=== PATIENT | male | born 1965 | race Caucasian/White ===

== ENCOUNTER → 2021-01-30 07:01 | Outpatient (CLI) | payer OTHER, SELFPAY | PROVIDERS: Visit Provider Internal Medicine Gastroenterology | DX: Z01.812 Encounter for preprocedural laboratory examination (principal); Z11.52 Encounter for screening for COVID-19; Z12.11 Encounter for screening for malignant neoplasm of colon | CPT/HCPCS: U0003 ==

== ENCOUNTER 2021-02-02 06:58 | Day surgery (SDC) | payer OTHER, SELFPAY ==
[2021-01-28 09:58] VITALS: BMI 29.4
[2021-02-02 07:10] VITALS: BP 154/102; PULSE 96; RESP 18; TEMP 36.1; O2SAT 99
--- NOTE | 2021-02-02 08:03 | P.PN_ITS ---
[facility] Anesthesia Checklist - Structural Data Admitted From: Home Planned Operative Procedure/s: colonoscopy Consent for Planned Operative Procedure(s) Verified: Yes - Airway Assessment C-Spine Mobility Assessed: Yes TMJ Mobility Assessed: Yes Dentition: Good Dentition - Neurological Assessment Level of Consciousness: Awake, Alert, Appropriate - Anesthesia Plan Anesthesia Risk discussed: Yes Anesthesia Plan: Verified ASA Class: II Anesthesia Type: MAC [facility] History I have reviewed the patient's past medical history: Yes Medical History: Denies:: Cancer, Diabetes Mellitus Type 1, Diabetes Mellitus Type 2, Internal Pacemaker, MRSA, Seizures *Have you ever received a pneumonia vaccine?: No *Have you received a flu vaccine this season?: Yes Anesthesia experience/problems:: none Other Surgeries: No: Pacemaker Amputation: No Fractures: No - *Social History Last grade of school completed: Advanced degree Smoking Status: Never smoker Alcohol Intake: never Substance Use Type: denies use *Occupational Status:: employed Housing: house Household Members: family *Travel in the last 8 weeks: Inside the [facility] Family Hx:: No significant family history, Coronary Artery Disease, Diabetes, Heart Attack, Hyperlipidemia, Hypertension, Stroke
--- NOTE | 2021-02-02 08:10 | HMH.PROC ---
[facility] Procedure Note Procedure Note:: Colonoscopy Procedure Report: Colonoscopy with cold snare polypectomy Endoscopist: Star Osuna II, MD Referring physician: Demarco Robles MD Date of Procedure: February 02, 2021 Equipment: Olympus 190 variable stiffness pediatric colonoscope Sedation: MAC sedation Indication: Mr. Boston is a 55-year-old gentleman who is here for initial screening colonoscopy. He reports no abdominal pain, weight loss, change in his bowel habits or rectal bleeding. He reports no family history of colon cancer. Procedure: Prior to the procedure, a history and physical exam was performed, and patient's medications and allergies were reviewed. The risks, benefits and alternatives of the sedation and procedure were discussed with the patient. All questions were answered and informed consent was obtained. The patient was brought to the procedure room. Patient identification and proposed procedure were verified by the physician and the nurse. The patient was placed in a left lateral decubitus position and the scope was passed under direct vision. Throughout the procedure, the patient's blood pressure, pulse, and oxygen saturations were monitored continuously. The colonoscopy was accomplished without difficulty. The patient tolerated the procedure well. Findings: On digital rectal examination there was normal rectal tone. There were no external hemorrhoids. The prostate was 2+, smooth, soft, symmetric without nodules. The colonoscope was introduced through the anal canal to the rectum and advanced to the cecum. The ileocecal valve and appendiceal orifice were identified. The scope was advanced a short distance into the ileum which appeared grossly normal. The scope was then withdrawn into the colon. There were 3 colon polyps (cecum x2 (3 and 4 mm) and sigmoid x1 (4 mm)) which were all removed via cold snare polypectomy. The remainder of the cecum, ascending and transverse colon and mucosa were grossly normal. There were scattered diverticuli throughout the descending and sigmoid colon (LEFT colon). The rectum itself was normal. Upon retroflexion within the rectum there were grade 1-2 internal hemorrhoids. The preparation was excellent throughout with [place] Preparation Score of 9. The cecal time was 12 minutes. Impression: 1. Diminutive colonic polyps x3 2. Left-sided diverticulosis 3. Grade 1-2 internal hemorrhoids Plan: I will follow up the polyp pathology and recommend repeat colonoscopy again in 5-7 years based upon the polyp histology. I would encourage bulking fiber supplementation on a long-term daily maintenance basis.
[2021-02-02 08:35] VITALS: BP 133/78; PULSE 83; RESP 18; TEMP 36.8; O2SAT 94
[2021-02-02 08:40] VITALS: BP 150/67; PULSE 82; RESP 18; O2SAT 95
[2021-02-02 08:50] VITALS: BP 141/70; PULSE 77; RESP 18; O2SAT 97
[2021-02-02 09:07] VITALS: BP 138/74; PULSE 69; RESP 18; O2SAT 97
[2021-02-02 09:49] VITALS: O2SAT 97
== END 2021-02-02 09:22 | disposition home or self-care (01) ==
LOC: OUTP 07:00
PROVIDERS: PCP Family Medicine; Visit Provider Internal Medicine Gastroenterology
PROC: 0DJD8ZZ Inspection of Lower Intestinal Tract, Via Natural or Artificial Opening Endoscopic (ICD-10-PCS; CPT 45378; principal; 2021-02-02 08:00)
DX: D12.0 Benign neoplasm of cecum (principal); D12.5 Benign neoplasm of sigmoid colon
CPT/HCPCS: 45385

== ENCOUNTER 2022-04-24 16:16 | Emergency (ER) | payer OTHER, SELFPAY ==
[2022-04-24 16:40] VITALS: BP 140/80; PULSE 101; RESP 18; TEMP 37.1; O2SAT 97; BMI 30.5
--- NOTE | 2022-04-24 17:08 | EXP.UTC ---
Discharge Plan Disposition Patient Disposition: Home, Self-Care Condition: Good Prescriptions Prescriptions: No Action simvastatin 20 MG tablet 20 mg PO DAILY irbesartan 300 MG tablet 300 mg PO DAILY Referrals Follow up/Referrals: Anay Schultz MD [Primary Care Provider] - See instructions Activity Restrictions/Add. Instructions Additional Instructions/Restrictions: follow up with pcp call health department on tuesday if any concerns or symptoms return or be seen in ed Clinical Impressions Clinical Impression: Needle stick injury of finger Instructions Patient Instructions: DI for Puncture Wound Discharge ED Provider: Garland ([facility] [facility] [place] General Stated complaint: AO@04/24@1500sticked contaminated needle Time Seen by Provider: 04/24/22 17:08 Resp Symptoms (Recalled from RN notes): No Skin Symptoms (Recalled from RN notes): No GI/ Symptoms (Recalled from RN notes): No MS Symptoms (Recalled from RN notes): No Card Symptoms (Recalled from RN notes): No Other (Recalled from RN notes): No History of Present Illness Provider Complaint: 56 yr old male presents for a needle stick. pt states he was mowing the yard and spotted a syringe with a needle on it in his yard. states he used a bag to pick it up and stuck himself in the index finger. pt states area did bleed and he cleaned area well. 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) Smoking Status: Never smoker alcohol intake: never substance use type: denies use current occupational status: employed Travel in the last 8 weeks: Inside the [place] household members: family housing: house caffeine: Yes ROS Obtained: Yes All systems reviewed & no additional complaints except as documented Constitutional Constitutional: Reports system reviewed and no additional complaints, except as documented Eyes Eyes: Reports system reviewed and no additional complaints, except as documented ENT Ears, Nose, Mouth, and Throat: Reports system reviewed and no additional complaints, except as documented Cardiovascular Cardiovascular: Reports system reviewed and no additional complaints, except as documented Respiratory Respiratory: Reports system reviewed and no additional complaints, except as documented Gastrointestinal Gastrointestingal: Reports system reviewed and no additional complaints, except as documented Musculoskeletal Musculoskeletal: Reports system reviewed and no additional complaints, except as documented Integumentary/Breasts Skin/Breast: Reports system reviewed and no additional complaints, except as documented and Reports as per HPI Neurologic Neurologic: Reports system reviewed and no additional complaints, except as documented Endocrine Endocrine: Reports system reviewed and no additional complaints, except as documented Hematologic/Lymphatic Henatologic/Lymphatic: Reports system reviewed and no additional complaints, except as documented Allergic/Immunologic Allergic/Immunologic: Reports system reviewed and no additional complaints, except as documented Physical Exam General General appearance: alert and in no apparent distress Head Head exam: atraumatic Eye Eye exam: Present normal appearance ENT ENT exam: Present normal exam Neck Neck exam: Present normal inspection Chest Chest inspection: Present normal inspection Respiratory Respiratory exam: Present normal lung sounds bilaterally Cardiovascular Cardiovascular ex
[2022-04-24 17:38] VITALS: BP 140/80; PULSE 101; RESP 18; TEMP 37.1; O2SAT 97
[2022-04-27 13:12] LABS: HIV Screen 4th Generation wRfx Non Reactive (Non Reactive)
[2022-05-20 12:23] LABS: Hepatitis C Antibody <0.1
[2022-05-20 12:41] LABS: Hep A Ab, IgM NEGATIVE; Hepatitis B Core Antibody IgM NEGATIVE; Hepatitis B Surface Antigen NEGATIVE
== END 2022-04-24 17:40 | disposition home or self-care (01) ==
PROVIDERS: Emergency Provider Nurse Practitioner Family; PCP Family Medicine
DX: S61.239A Puncture wound without foreign body of unspecified finger without damage to nail, initial encounter (principal); W46.0XXA Contact with hypodermic needle, initial encounter; Y93.H9 Activity, other involving exterior property and land maintenance, building and construction; Y92.096 Garden or yard of other non-institutional residence as the place of occurrence of the external cause; Z23 Encounter for immunization
CPT/HCPCS: 80074; 86703; 90471; 90715; 99212; G0432; G0463

== ENCOUNTER 2023-11-09 14:07 | Outpatient (CLI) | payer OTHER, SELFPAY ==
[2023-11-09 15:09] LABS: Blood Urea Nitrogen 18 mg/dl (9-20); Estimated Glomerular Filt Rate 87 ml/min (>60); GFR (African American) 106 ML/MIN (>60)
[2023-11-11 08:37] LABS: PSA, Free 0.45 ng/mL; Prostate Specific Ag 2.8 ng/mL (0.0-4.0)
== END 2023-11-09 23:59 | disposition home or self-care (01) ==
LOC: LAB 14:08
PROVIDERS: PCP Family Medicine; Visit Provider Urology
DX: N28.1 Cyst of kidney, acquired (principal); Z80.42 Family history of malignant neoplasm of prostate
CPT/HCPCS: 36415; 82565; 84153; 84154; 84520

== ENCOUNTER 2023-11-17 15:12 | Outpatient (CLI) | payer OTHER, SELFPAY ==
--- NOTE | 2023-11-17 15:12 | US_ITS ---
FINAL REPORT TECHNIQUE: Ultrasound images of the kidneys and bladder were obtained. CLINICAL HISTORY: . COMPARISON: None FINDINGS: The right kidney measures 11.8 cm in length. It is normal in echogenicity. There is a dilated calyx in the lower pole the right kidney. There is a mildly prominent right renal pelvis. The left kidney measures 12.7 cm in length. It is normal in echogenicity. There is moderate hydronephrosis. IMPRESSION: Dilated calyx in the lower pole of right kidney and moderate left-sided hydronephrosis. Recommend infused abdomen pelvis CT to evaluate for source. Reviewed, Interpreted and Dictated by Didier Betancourt MD Transcribed by DEONDRE Collado Authenticated and . [facility]
== END 2023-11-17 23:59 | disposition home or self-care (01) ==
LOC: RAD 15:12
PROVIDERS: PCP Family Medicine; Visit Provider Urology
DX: N28.1 Cyst of kidney, acquired (principal)
CPT/HCPCS: 76770

== ENCOUNTER 2023-12-07 12:47 | Outpatient (CLI) | payer OTHER, SELFPAY ==
--- NOTE | 2023-12-07 12:48 | CT_ITS ---
FINAL REPORT TECHNIQUE: Axial CT images of the abdomen and pelvis were obtained before and after the administration of IV contrast. This study was performed with techniques to keep radiation doses as low as reasonably achievable (ALARA). Individualized dose reduction techniques using automated exposure control or adjustment of mA and/or kV according to the patient''s size were employed. CLINICAL HISTORY: renal cyst prior u/s follow up for renal cyst COMPARISON: Ultrasound examination of the retroperitoneum dated 11/17/2023 FINDINGS: Abdomen: The lung bases are clear. The heart is normal in size. The liver has an unremarkable appearance, without evidence of mass or biliary duct dilatation. . The spleen is unremarkable. No adrenal masses present. The pancreas has an unremarkable appearance. There is bilateral mild to moderate hydronephrosis versus parapelvic cysts. If this does represent bilateral hydronephrosis is likely secondary to UPJ stenoses as the ureters appear normal in size. There is atrophy of the lower pole of the left kidney. There is a high attenuation mass in the lower pole of the left kidney that does not show contrast-enhancement, and measures 15 mm in size. This is consistent with a hyperdense cyst, Bosniak category 2. The aorta is normal in caliber. There is no free fluid or adenopathy. No mass or abnormal fluid collection is seen. Precontrast images demonstrate no evidence of nephrolithiasis. Pelvis: The appendix is normal. There is a small umbilical hernia containing fat. There is also a small left inguinal hernia containing fat. The urinary bladder is unremarkable. No inflammatory process is seen. There is no evidence of mass or adenopathy. There is no evidence of bowel obstruction. IMPRESSION: Bilateral hydronephrosis versus parapelvic cysts. This could be further evaluated with follow-up CT with delayed postcontrast imaging. Hyperdense cyst left kidney as described above. Atrophy lower pole of the left kidney. Reviewed, Interpreted and Dictated by Geovani Martinez III, MD Transcribed by Suzanne Sebastian Authenticated and [facility]
[2023-12-07] MEDS: SODIUM CHLORIDE 0.9% 10ML SYR (RAD ONLY) 10 ML IV (13:29)
[2023-12-07] MEDS: IOPAMIDOL-370 (76%);100ML BOTTLE 75 ML IV (13:29)
== END 2023-12-07 23:59 | disposition home or self-care (01) ==
LOC: RAD 12:48
PROVIDERS: PCP Family Medicine; Visit Provider Urology
DX: N28.1 Cyst of kidney, acquired (principal)
CPT/HCPCS: 74178; Q9967

== ENCOUNTER 2024-01-16 11:20 | Outpatient (CLI) | payer OTHER, SELFPAY ==
[2024-01-17 08:18] LABS: PSA, Free 0.33 ng/mL; Prostate Specific Ag 1.4 ng/mL (0.0-4.0)
== END 2024-01-16 23:59 | disposition home or self-care (01) ==
LOC: LAB 11:20
PROVIDERS: PCP Family Medicine; Visit Provider Urology
DX: R97.20 Elevated prostate specific antigen [PSA] (principal)
CPT/HCPCS: 36415; 84153; 84154